=== PATIENT | female | born 1960 | race Caucasian/White ===

== ENCOUNTER 2016-12-26 06:17 | Inpatient (IN) | payer MEDICARE ==
[~2016-12-26] VITALS: Ht 162.5 cm; Wt 54.4 kg
--- NOTE | ~2016-12-26 | WRIGHTHP ---
[place], [place] PATIENT HISTORY AND PHYSICAL EXAM NAME: JUDE CASTANO UNIT #: [id number] ROOM: 312 DOCTOR: GABBIE LARA MD BIRTHDATE: [birth year] DOS: 12/26/2016 INITIAL PSYCHIATRIC EVALUATION CHIEF COMPLAINT: " is out to get me. They are bugging my electrical equipment and damaging my car." HISTORY OF PRESENT ILLNESS: This is a 56-year-old white female who was [facility] The patient had presented there with family's assistance with an increase in paranoia. The patient believes that is attempting to harm her. They are tampering with all of her electronic devices. They are sending messages through her TV, through her cell phone, through her radio, even when she unplugs them, sometimes the messages are coming through. They also have damaged her car repeatedly. She has not been eating or sleeping well, not attending to her ADLs and her paranoia has worsened to the point where she is now becoming increasingly agitated and combative with family. In fact, while she was at [facility], she was so agitated, she did require p.r.n. intervention with Haldol with good results. She is admitted now to the [facility] to rule any organic factors, to stabilize on medication, to engage in individual and gross milieu activity with the ultimate plan to return home when stable. PAST MEDICAL HISTORY: Essentially unremarkable. MENTAL STATUS: The patient is alert and oriented to person, place and time. Mood does appear to be somewhat depressed with anxious overtones and there is a considerable amount of paranoia and psychosis with a fixed delusional system noted. Memory is intact. DIAGNOSIS: Schizoaffective disorder. PLAN: I will discontinue her Seroquel in lieu of Invega 6 mg in the morning, utilize Ativan and Geodon p.r.n., engage in individual and gross milieu activity, may need to add an antidepressant later in her stay, will ultimately work towards getting her stable and return home. [place], [place] PATIENT HISTORY AND PHYSICAL EXAM NAME: JUDE CASTANO UNIT #: [id number] ROOM: 312 DOCTOR: GABBIE LARA MD BIRTHDATE: [birth year] GABBIE LARA MD CM:BREANNA:PATIENT HISTORY AND PHYSICAL EXAMINATION 3 5 GABBIE LARA MD 12/26/16905 interface
--- NOTE | ~2016-12-26 | PR ---
[place], [place] PROGRESS NOTE NAME: JUDE CASTANO UNIT #: [id number] ROOM: 312 DOCTOR: ELLIOTT LESTER REINIER BIRTHDATE: [birth year] DOS: 12/29/2016 CHIEF COMPLAINT: "Good morning." SUMMARY OF VISIT: The patient was interviewed in her room where she engaged readily in conversation. Nursing notes that she refused her Neurontin last night because she is convinced that this was caused her tongue to feel sick. I advised the patient I will go ahead and discontinue her Neurontin. She keeps talking about her Q medication that is really good helping her sleep. Her chart does show that she was on multiple doses of Seroquel. I am assuming that is what she is referring to. At this point in time since she was not compliant with that medication and stopped taking it, I am not going to reorder it. I will discontinue the Neurontin; however, to prevent increased agitation. MENTAL STATUS: Alert and oriented to person, place, approximate time. Mood overall is euthymic. She just becomes irritated and agitated when not want to take the Neurontin, so I have removed that obstacle. No overt signs of auditory or visual hallucinations. I still think there is some underlying delusions and paranoia, but right now she is fixated on this Neurontin and her tongue, so I am going to pull that away and take that component away. PLAN: Discontinue Neurontin. I am going to add Zanaflex 2 mg t.i.d. to see if we can take the edge off help her sleep. Discussed with the patient and she seems agreeable at this point in time. She was pleased that the Neurontin would be stopped. We will continue to try to engage in individual and gross milieu therapy and there seems to be a need for clarification as to why several of her medications were stopped, nursing is following up with that in particular. It appears she has a history of seizure disorder and tachycardia and she had an ablation and that her medications that were stopped include Klonopin, carvedilol. I am assuming the carvedilol was for tachycardia may be the ablation resolved this, but we need the clarification looks like stopped because she was noncompliant with it and not having seizures, so we will need to keep an eye on that as well as Effexor and Seroquel and Xanax were stopped. So, we will get some clarification just so that we can document as to why the medications were discontinued, when we discharge her we can follow up with pharmacy to make sure she does not get the wrong medications. [place], [place] PROGRESS NOTE NAME: JUDE CASTANO UNIT #: [id number] ROOM: 312 DOCTOR: ELLIOTT LESTER BIRTHDATE: [birth year] REINIER LESTER CNP CM:PNTRANS [id number] ELLIOTT LESTER 12/29/161646 interface
--- NOTE | ~2016-12-26 | DS ---
[place], [place] DISCHARGE SUMMARY NAME: JUDE CASTANO UNIT #: [id number] ROOM: 312 DOCTOR: GABBIE LARA MD BIRTHDATE: [birth year] DOS: 12/30/2016 CHIEF COMPLAINT: "Everyone is out to get me, they are bugging my electrical and damaging my car." HISTORY OF PRESENT ILLNESS: This is a 56-year-old white female who was sent here to the [facility] on an involuntary basis from [facility]. The patient had presented there with family's assistance due to increased paranoia. She believes that everyone is out to get her, especially her neighbors. They are tampering with all of her electronic devices and sending messages through her television, her cell phone, and through her radio, and even if she unplugs them, these messages continue to come through. She states that they have damaged her car repeatedly. She also endorsed poor sleep and appetite, not attending to her ADLs and the paranoia is becoming so bad that she has become agitated and combative with her own family. While at the [facility], she was so agitated, she did require p.r.n. intervention with Haldol with good results. She is admitted now to the [facility] to rule out further organic factors to attempt to stabilize on medication, returning home when stable. PAST MEDICAL HISTORY: Essentially unremarkable. SUMMARY OF HOSPITAL COURSE: The patient was admitted to the unit where initially I attempted to place her on Seroquel, but then switched gears and started her on Invega 6 mg in the morning. Within a matter of 24-36 hours of taking her first several doses of Invega, her psychotic symptoms broke very quickly. She became much more compliant and much more goal directed in her thinking. She did tolerate the Invega well. I did go ahead and increase the dose of the Invega from 6 to 9 mg in the morning to further decrease her psychotic symptoms and stabilize her mood. She continued to do well with this medication and it did completely clear her psychotic thoughts. On the day of discharge, she vocalized a readiness and a willingness to go home and was anxious to go home because she had a dog to take care of and her daughter was expecting a baby soon and wanted to be there to help prepare things. She voiced no further paranoia. She had no suicidal thoughts, homicidal thoughts, or any self-injurious thoughts. She likewise denied any medication side effects and no tardive dyskinesia or extrapyramidal symptoms were noted. MENTAL STATUS AT DISCHARGE: The patient was alert and oriented. Mood was fairly euthymic. Affect was appropriate. There were no symptoms of hypomania or harley. There were no overt auditory or visual hallucinations. No delusions or paranoia were present. Memory was fairly intact. DISCHARGE DIAGNOSIS: Schizoaffective disorder. PLAN: The patient will return home. All of her prescriptions have been E-scribed to her pharmacy and she will follow up with her outpatient provider. [place], [place] DISCHARGE SUMMARY NAME: JUDE CASTANO UNIT #: [id number] ROOM: 312 DOCTOR: GABBIE LARA MD BIRTHDATE: [birth year] GABBIE LARA MD CM:YEIMI 4 8 GABBIE LARA MD 12/30/16848 interface
--- NOTE | ~2016-12-26 | CON ---
[place], [place] REPORT OF CONSULTATION NAME: JUDE CASTANO UNIT #: [id number] ROOM: 312 DOCTOR: VARINDER HERNADEZ ED.D TED) BIRTHDATE: [birth year] DOS: 12/27/2016 HISTORY OF PRESENT ILLNESS: The patient is a 56-year-old female referred by Dr. Lara for competency evaluation. At the present time, this patient is on the Behavioral Health Unit at [facility]. She states she is single and has 1 son and 1 daughter. She has not worked for many years, but did work for quite some time in a bank. Her medical history is pertinent for schizoaffective disorder. She was sent to [facility] from [facility] for treatment for her schizoaffective disorder. She states she also suffers from insomnia. Most generally, [facility] [place], [place]. She also follows with Dr. Encarnacion at his private practice here in [place]. This patient's medications include gabapentin, Invega, Geodon and Ativan. She denies any significant substance abuse issues. This patient was awake, alert and oriented in all 3 spheres. She denies any suicidal ideation or plan. She states she has been following at [facility] with Dr. Encarnacion. She was quite delusional yesterday, but today she is not delusional whatsoever. She states that she was very fearful of neighbors who had moved into the [place] she [place], but she states that she realizes that that was not logical. She states that she is planning on returning to [place] once she is discharged and she feels no danger whatsoever. RECOMMENDATIONS: In my opinion, this patient is competent to make informed healthcare decisions. DIAGNOSIS: Schizoaffective disorder. Thank you very much for this consult. VARINDER HERNADEZ ED.D CM:CONSTR:REPORT OF CONSULTATION 1535 12/28/16 0622 interface GABBIE LARA MD
--- NOTE | ~2016-12-26 | PR ---
[place], [place] PROGRESS NOTE NAME: JUDE CASTANO UNIT #: [id number] ROOM: 312 DOCTOR: GABBIE LARA MD BIRTHDATE: [birth year] DOS: 12/27/2016 CHIEF COMPLAINT: "I slept well. I feel so much better." SUMMARY OF THE VISIT: The patient was interviewed in her bedroom. She was resting quietly in bed, but awoke easily and engaged readily in conversation. She voiced that she slept soundly through the entire night and woke up this morning now feeling rested and much better. We discussed at length her current living situation and she discussed [place], that there are 2 men that live next to her and that they come and go, but do not seem to bother her. She did not mention anything about ____ or the men being drug dealers and did seem to be much more realistic in her overall depiction of reality. She does seem to be tolerating the current drug regimen well. I see no extrapyramidal symptoms, tardive dyskinesia, sedation, or somnolence. MENTAL STATUS: She is alert and oriented. Mood does seem to be trending towards euthymia. Affect is more appropriate. There are no symptoms of harley or hypomania. At first glance, there are no psychotic symptoms present, but I will further tease this out as the day progresses. Memory seems to be intact. PLAN: I will follow up on her potassium level that was drawn when she was at [place] and recheck a BMP today. Otherwise, I will maintain her current dose of Invega at 6 mg in the morning. Continue to support and monitor, engage in individual and gross milieu activity, returning home when stable. GABBIE LARA MD CM:PNTRANS 1 1 GABBIE LARA MD 12/27/16851 interface
--- NOTE | ~2016-12-26 | PR ---
[place], [place] PROGRESS NOTE NAME: JUDE CASTANO UNIT #: [id number] ROOM: 312 DOCTOR: ELLIOTT LESTER BIRTHDATE: [birth year] DOS: 12/28/2016 CHIEF COMPLAINT: "Good morning." SUMMARY OF VISIT: The patient was assessed in her room where she was lying in bed after breakfast. She easily awoken and engaged in conversation. Conversation was pleasant for the most part and then she started talking about who signed her in, "I hate the people that signed me in or out to get me, they have access to my wallet, I am not going to sign myself in, I want to go home." I do see that Dr. Sierra saw her yesterday and per his report, he did deem her competent. She kept asking me for a Q medication. She says it started with that. I asked her if it was Seroquel, she is like "I don't know, but it puts me out, I take it with my Neurontin and I don't wake up until the next morning." I do see that she follows with Dr. Encarnacion out in the community. She has a significant substance abuse issues. The patient has currently pink slip, so she is not signing herself out or go anywhere in the next few days. MENTAL STATUS: She is alert and oriented to person, place, approximate to time. Mood was euthymic until she started talking about who signed her in, they are out to get her and then she became quite agitated, so affect became inappropriate. Delusional speech right now with regard to the people out for her, delusional and paranoid, ____ maybe there are people who have bad intentions in her life, but right now it appears that she is just delusional and paranoid thinking. Some drug seeking behaviors, basically she stated that Dr. Encarnacion gave her pill that she takes is supposed to help her sleep and she takes it to knock herself out and right before she falls asleep, she is to take the Neurontin so that she does not get leg cramps at night. I advised her that I am not comfortable with this type of deep sedation ____ and that I would try to figure something out for her as far as medications to help her sleep. Dr. Montanez wants her BMP rechecked. Her sodium is little elevated, as is her chloride, other than that, it appears that all her other labs are fairly within normal limits. We will continue to try to engage in individual and gross milieu therapy. We will try to get the patient to sign herself in, but right now she is under pink slip. She is currently receiving Invega, which I increased to see if I can help break some psychosis. We will continue with the Neurontin. We will try to engage in individual and gross milieu therapy with the plan to discharge once stable. [place], [place] PROGRESS NOTE NAME: JUDE CASTANO UNIT #: [id number] ROOM: 312 DOCTOR: ELLIOTT LESTER BIRTHDATE: [birth year] REINIER LESTER CNP CM:PNCLARENCE [id number] ELLIOTT LESTER 12/29/16 0143 interface
[2016-12-26] MEDS ORDERED: KLONOPIN2 M1 PO (06:25)
[2016-12-26] MEDS ORDERED: CARVEDILOL25 MG PO (06:26)
[2016-12-26] MEDS ORDERED: DILANTIN30 MG PO (06:28)
[2016-12-26] MEDS ORDERED: EFFEXOR XR75 MG PO (06:28)
[2016-12-26] MEDS ORDERED: SEROQUEL25 MG PO (06:30)
[2016-12-26 09:25] VITALS: BP 120/51; BP 120/62
[2016-12-26 09:29] LABS: HEMOGLOBIN A1c 5.1 % (4.8-5.6)
[2016-12-26 09:32] LABS: THYROID STIM HORMONE (HS) 1.76 uIU/ml (0.358-4.75)
[2016-12-26] MEDS ORDERED: SEROQUEL100 MG PO (10:36)
[2016-12-26] MEDS ORDERED: NEURONTIN300 MG PO (10:37)
[2016-12-26] MEDS ORDERED: XANAX1 MG PO (10:37)
[2016-12-26 20:13] VITALS: BP 110/80; BP 85/58
[2016-12-27 08:00] VITALS: BP 115/68
[2016-12-27 09:28] LABS: BUN 9 mg/dl (7-24); CARBON DIOXIDE 27 mmol/L (21-32); CHLORIDE 112 mmol/L (98-107); EST GLOM FILT AFRICAN AMERICAN > 60 ml/min; GLUCOSE 105 mg/dL (65-99); POTASSIUM 3.7 mmol/L (3.5-5.1); SODIUM 146 mmol/L (136-145)
[2016-12-27 19:50] VITALS: BP 139/81
[2016-12-28 07:59] VITALS: BP 103/62
[2016-12-28 19:45] VITALS: BP 129/78
[2016-12-29 07:45] VITALS: BP 121/84
[2016-12-29 19:52] VITALS: BP 129/73
[2016-12-30 07:20] VITALS: BP 117/87
[2016-12-30] MEDS ORDERED: TIZANIDINE HCL2 MG PO (08:00)
[2016-12-30] MEDS ORDERED: D-1000 185 MG-11 TAB PO (08:00)
[2016-12-30] MEDS ORDERED: INVEGA9 MG PO (08:00)
[2016-12-30] MEDS ORDERED: LAMICTAL150 MG PO (12:19)
[2016-12-30] MEDS ORDERED: TOPAMAX50 MG PO (12:19)
== END 2016-12-30 12:30 | disposition home or self-care (01) | DRG 885 ==
LOC: 3N 06:17
PROVIDERS: Psychiatry & Neurology Psychiatry
DX: F25.1 Schizoaffective disorder, depressive type (principal); G40.909 Epilepsy, unspecified, not intractable, without status epilepticus; E55.9 Vitamin D deficiency, unspecified; G89.29 Other chronic pain; E78.5 Hyperlipidemia, unspecified; F12.10 Cannabis abuse, uncomplicated; Z90.710 Acquired absence of both cervix and uterus; Z98.51 Tubal ligation status; Z88.8 Allergy status to other drugs, medicaments and biological substances; Z88.1 Allergy status to other antibiotic agents; Z91.041 Radiographic dye allergy status; Z79.899 Other long term (current) drug therapy